=== PATIENT | male | born 1975 | race Caucasian/White ===

== ENCOUNTER 2018-12-14 18:21 | Emergency (ER) | payer OTHER ==
[~2018-12-14] VITALS: Ht 188 cm; Wt 109.1 kg
[2018-12-14] MEDS ORDERED: RITALIN 20M20 MG/TAB PO (18:38)
[2018-12-14 18:40] LABS: BASO % 0.3 % (0.0-2.0); EOS % 0.5 % (0-4.0); GRAN # 3.7 (1.4-6.5); GRAN % 49.6 % (42.2-75.2); HEMATOCRIT 39.7 % (42.0-52.0); HEMOGLOBIN 13.9 g/dl (13.5-18.0); LYMPH # 3.1 (1.2-3.4); LYMPH % 40.4 % (20.0-51.0); MEAN CELL VOLUME 84 fl (80.0-100.0); MEAN CORPUSCULAR HEMOGLOBIN 29 pg (27.0-31.0); MEAN CORPUSCULAR HGB CONC 35 g/dl (33.0-37.0); MEAN PLATELET VOLUME 9.7 fl (7.4-10.4); MONO # 0.7 (0.1-0.6); MONO % 9.1 % (1.7-9.3); PLATELET COUNT 281 K/mm3 (130-400); RED BLOOD COUNT 4.72 M/mm3 (4.20-5.60); REDCELL DISTRIBUTION WIDTH-CV 12.3 % (11.5-14.5)
[2018-12-14] MEDS ORDERED: CYMBALTA 60MG60 MG PO (18:40)
[2018-12-14 18:44] LABS: ALBUMIN 4.5 gm/dL (3.5-5.0); BILIRUBIN,TOTAL 0.4 mg/dL (0.0-1.0); CALCIUM 9.9 mg/dL (8.4-10.2); CREATININE, serum 1.18 (0.66-1.25); INR 0.9 (0.8-3.0); POTASSIUM 3.1 mmol/L (3.4-5.0); PROTHROMBIN TIME 10.7 SECONDS (9.7-12.8); TOTAL PROTEIN 7.3 gm/dL (6.4-8.2)
[2018-12-14 18:55] LABS: TROPONIN-I 0.025 ng/mL (0.000-0.035)
[2018-12-14 19:00] VITALS: BP 145/102; PULSE 61; TEMP 98.2
== END 2018-12-14 19:00 | disposition short-term general hospital (02) ==
LOC: COL.ER 18:21
PROVIDERS: Family Medicine
DX: I21.19 ST elevation (STEMI) myocardial infarction involving other coronary artery of inferior wall (principal); F43.10 Post-traumatic stress disorder, unspecified
CPT/HCPCS: J1644; J3010

== ENCOUNTER 2018-12-21 20:22 | Emergency (ER) | payer OTHER ==
[~2018-12-21] VITALS: Ht 188 cm; Wt 113.6 kg
[~2018-12-21 20:22] MED LIST changes: -ASPIRIN 81M81 MG/TA2 PO; -EFFIENT10 MG PO; -LIPITOR 80MG80 MG PO; -NORCO 325 MG-51 TAB PO; -PRINIVIL5 MG PO
[2018-12-21 20:42] LABS: BASO % 0.4 % (0.0-2.0); EOS % 0.4 % (0-4.0); GRAN # 4.7 (1.4-6.5); GRAN % 50.3 % (42.2-75.2); HEMATOCRIT 43.8 % (42.0-52.0); LYMPH % 42.6 % (20.0-51.0); MEAN CELL VOLUME 86 fl (80.0-100.0); MEAN CORPUSCULAR HEMOGLOBIN 29 pg (27.0-31.0); MEAN CORPUSCULAR HGB CONC 34 g/dl (33.0-37.0); MONO # 0.5 (0.1-0.6); MONO % 5.2 % (1.7-9.3); PLATELET COUNT 343 K/mm3 (130-400); RED BLOOD COUNT 5.11 M/mm3 (4.20-5.60)
[2018-12-21 20:49] LABS: PROTHROMBIN TIME 11.4 SECONDS (9.7-12.8)
[2018-12-21 20:51] LABS: ALBUMIN 4.9 gm/dL (3.5-5.0); BILIRUBIN,TOTAL 0.7 mg/dL (0.0-1.0); CREATININE, serum 1.54 (0.66-1.25); POTASSIUM 3.4 mmol/L (3.4-5.0); TOTAL PROTEIN 8.2 gm/dL (6.4-8.2)
[2018-12-21 20:52] LABS: PARTIAL THROMBOPLASTIN TIME 28.5 SECONDS (26.0-37.0)
[2018-12-21] MEDS ORDERED: LIPITOR 80MG80 MG PO (20:54)
[2018-12-21] MEDS ORDERED: EFFIENT10 MG PO (20:54)
[2018-12-21] MEDS ORDERED: PRINIVIL5 MG PO (20:54)
[2018-12-21] MEDS ORDERED: ASPIRIN 81M81 MG/TA2 PO (20:55)
[2018-12-21 21:02] VITALS: BP 119/80; PULSE 80
[2018-12-21 21:05] LABS: TROPONIN-I 0.719 ng/mL (0.000-0.035)
== END 2018-12-21 20:30 | disposition short-term general hospital (02) ==
LOC: COL.ER 20:22
PROVIDERS: Emergency Medicine
DX: I21.19 ST elevation (STEMI) myocardial infarction involving other coronary artery of inferior wall (principal)
CPT/HCPCS: J1644

== ENCOUNTER → 2018-12-21 | Emergency (ER) | payer OTHER ==
[~2018-12-21] MED LIST: ASPIRIN 81M81 MG/TA2 PO; CYMBALTA 60MG60 MG PO; EFFIENT10 MG PO; LIPITOR 80MG80 MG PO; NORCO 325 MG-51 TAB PO; PRINIVIL5 MG PO; RITALIN 20M20 MG/TAB PO
== END ==
LOC: COL.ER 20:21
DX: Z72.9 Problem related to lifestyle, unspecified (principal)

== ENCOUNTER 2018-12-24 19:50 | Emergency (ER) | payer OTHER ==
[~2018-12-24] VITALS: Ht 188 cm; Wt 112.3 kg
[~2018-12-24 19:50] MED LIST changes: +ASPIRIN 81M81 MG/TA2 PO; +EFFIENT10 MG PO; +LIPITOR 80MG80 MG PO; +PRINIVIL5 MG PO
[2018-12-24 19:55] VITALS: TEMP 100.1
[2018-12-24] MEDS ORDERED: NORCO 325 MG-51 TAB PO (20:21)
[2018-12-24 20:36] VITALS: BP 131/74; PULSE 67
== END 2018-12-24 20:39 | disposition home or self-care (01) ==
LOC: COL.ER 19:50
DX: G89.18 Other acute postprocedural pain (principal); I25.10 Atherosclerotic heart disease of native coronary artery without angina pectoris; Z95.5 Presence of coronary angioplasty implant and graft; Z79.82 Long term (current) use of aspirin

== ENCOUNTER 2019-02-07 14:53 | Outpatient (RCR) | payer OTHER ==
[~2019-02-07 14:53] MED LIST changes: +NORCO 325 MG-51 TAB PO
== END 2019-03-02 06:31 | disposition home or self-care (01) ==
LOC: COL.CR 14:53
DX: Z48.812 Encounter for surgical aftercare following surgery on the circulatory system (principal); I21.3 ST elevation (STEMI) myocardial infarction of unspecified site; Z95.5 Presence of coronary angioplasty implant and graft